=== PATIENT | female | born 1990 | race American Indian/Alaskan Native ===

== ENCOUNTER 2022-01-13 07:30 | Inpatient (IN) | payer OTHER ==
[2022-01-22] MEDS: LACTATED RINGERS 1,000 ML IV SCH ×2 (06:00→07:34)
[2022-01-22 06:54] LABS: Basophils # (Auto) 0.1 K/mm3 (0.0-0.1); Basophils % (Auto) 0.7 % (0.0-1.8); Eosinophils # (Auto) 0.1 K/mm3 (0.0-0.4); Eosinophils % (Auto) 0.9 % (0.0-4.3); Hematocrit 34.1 % (30.3-42.9); Lymphocytes # (Auto) 1.7 K/mm3 (1.2-5.4); Lymphocytes % (Auto) 22.5 % (13.4-35.0); Mean Corpuscular HGB Conc 35 % (30-34); Mean Corpuscular Volume 94 fl (79-97); Monocytes # (Auto) 0.7 K/mm3 (0.0-0.8); Monocytes % (Auto) 9.9 % (0.0-7.3); Platelet Count 202 K/mm3 (140-440); Red Blood Count 3.64 M/mm3 (3.65-5.03); Red Cell Distribution Width 12.7 % (13.2-15.2)
[2022-01-22] MEDS ORDERED: OXYTOCIN DRIP 30 UNITS/500 ML BAG IV SCH ×2 (07:00→11:00)
--- NOTE | 2022-01-22 07:05 | History and Physical Report ---
History of Present Illness Date of examination: 01/22/22 Date of admission: 01/22/22 05:26 Chief complaint: Term preg. Here for a scheduled repeat . History of present illness: by 2 cesareans. SHALINI 01/18/22. GDM, diet controlled. Past History Past Surgical History: section - Obstetrical History Expected Date of Delivery: 01/18/22 Actual Gestation: 40 Week(s) 4 Day(s) : 3 Number of Living Children: 2 Medications and Allergies Allergies Allergy/AdvReac Type Severity Reaction Status Date / Time No Known Allergies Allergy Verified 08/19/16 11:19 Home Medications Medication Instructions Recorded Confirmed Last Taken Type Ibuprofen [Motrin] 800 mg PO Q8HR PRN #60 tablet 08/20/16 Unknown Rx Oxycodone HCl/Acetaminophen 1 each PO Q6HR PRN #45 tablet 08/20/16 Unknown Rx [Percocet 7.5/325 mg] Vit-Fe Fumar-FA [ 1 tab PO QDAY 08/20/16 08/20/16 08/18/16 History Vitamin] Active Meds: Active Medications Citric Acid/Sodium Citrate (Bicitra Oral Liqd 30ml) 30 ml PO ONCE ONE Stop: 01/22/22 07:18 Famotidine (Famotidine 20 Mg/2 Ml Inj) 20 mg IV ONCE ONE Stop: 01/22/22 07:18 Lactated Ringer's (Lactated Ringers) 1,000 mls @ 2,250 mls/hr IV PREOP CARLA Stop: 01/23/22 06:57 Last Admin: 01/22/22 06:00 Dose: 2,250 mls/hr Oxytocin/Sodium Chloride (Pitocin/Ns 30 Unit/500ml) 30 units in 500 mls @ 0 mls/hr IV TITR CARLA; Protocol Cefazolin Sodium (Ancef/Sterile Water 2 Gm/20 Ml) 2 gm in 20 mls @ 80 mls/hr IV PREOP NR; Protocol Stop: 01/22/22 23:45 Metoclopramide HCl (Metoclopramide 10 Mg/2 Ml Inj) 10 mg IV ONCE ONE Stop: 01/22/22 07:18 Review of Systems All systems: negative - Vital Signs Vital signs: Vital Signs Pulse BP Pulse Ox 71 109/68 99 01/22/22 06:26 01/22/22 06:26 01/22/22 06:26 Temp Pulse Resp BP Pulse Ox 98.7 F 84 109/68 99 01/22/22 06:34 01/22/22 06:57 01/22/22 06:26 01/22/22 06:57 - Physical Exam Lungs: Positive: Normal air movement Abdomen: Positive: normal appearance, soft, distention, normal bowel sounds Uterus: Positive: enlarged, normal contour Extremities: Positive: normal Deep Tendon Reflex Grade: Normal +2 - Obstetrical FHR: auscultation normal Results Result Diagrams: 01/22/22 06:07 Abnormal lab results 01/22/22 Range/Units 06:07 RBC 3.64 L (3.65-5.03) M/mm3 MCH 33 H (28-32) pg MCHC 35 H (30-34) % RDW 12.7 L (13.2-15.2) % [place]ack[place] % (Auto) 9.9 H (0.0-7.3) % All other labs normal. Assessment and Plan - Patient Problems (1) Postmaturity , 40-42 weeks gestation Current Visit: Yes Status: Acute (2) Previous delivery affecting Current Visit: Yes Status: Acute Plan to address problem: for repeat . (3) GDM (gestational diabetes mellitus) Current Visit: Yes Status: Acute Qualifiers: Gestational diabetes mellitus control: diet-controlled
[2022-01-22] MEDS ORDERED: FAMOTIDINE 20 MG/2 ML INJ IV ONE (07:17)
[2022-01-22] MEDS ORDERED: METOCLOPRAMIDE 10 MG/2 ML INJ IV ONE (07:17)
[2022-01-22] MEDS ORDERED: BICITRA ORAL LIQD 30ML PO ONE (07:17)
[2022-01-22] MEDS ORDERED: ceFAZolin/Water 2 GM/20 ML 2 GM/20 ML SYRINGE IV NR (07:30)
[2022-01-22] MEDS ORDERED: ONDANSETRON 4 MG/2 ML INJ IV PRN ×2 (10:17→11:00)
[2022-01-22] MEDS ORDERED: PROMETHAZINE 25 MG RECT SUPP PR PRN ×2 (10:17→11:00)
--- NOTE | 2022-01-22 10:27 | Anesthesia Day of Surgery ---
Anesthesia Day of Surgery - Day of Surgery Patient Examined: Yes Patient H&P Reviewed: Yes Patient is NPO: Yes Beta Blockers: No Cardiac Clearance: No Pulmonary Clearance: No Raj's Test: N/A
--- NOTE | 2022-01-22 10:27 | Anesthesia Consultation ---
Anesthesia Consult and Med Hx Date of service: 01/22/22 - Airway Anesthetic Teeth Evaluation: Good ROM Head & Neck: Adequate Mental/Hyoid Distance: Adequate Mallampati Class: Class II Intubation Access Assessment: Probably Good - Pulmonary Exam CTA: Yes - Cardiac Exam Cardiac Exam: RRR - Pre-Operative Health Status ASA Pre-Surgery Classification: ASA2 Proposed Anesthetic Plan: Spinal Nerve Block: Uriel Tap - Pulmonary Hx Smoking: No Hx Asthma: No Hx Respiratory Symptoms: No SOB: No COPD: No Home Oxygen Therapy: No Hx Pneumonia: No Hx Sleep Apnea: No - Cardiovascular System Hx Hypertension: No Hx Coronary Artery Disease: No Hx Heart Attack/AMI: No Hx Angina: No Hx Percutaneous Transluminal Coronary Angioplasty (PTCA): No Hx Cardia Arrhythmia: No Hx Pacemaker: No Hx Internal Defibrillator: No Hx Valvular Heart Disease: No Hx Heart Murmur: No Hx Peripheral Vascular Disease: No - Central Nervous System Hx Neuromuscular Disorder: No Hx Seizures: No CVA: No Hx Back Pain: No Hx Psychiatric Problems: No - Gastrointestinal Hx Ulcer: No Hx Gastroesophageal Reflux Disease: No - Endocrine Hx Renal Disease: No Hx End Stage Renal Disease: No Hx Cirrhosis: No Hx Liver Disease: No Hx Insulin Dependent Diabetes: No Hx Non-Insulin Dependent Diabetes: No Hx Thyroid Disease: No Hx Hypothyroidism: No Hx Hyperthyroidism: No - Hematic Hx Anemia: No Hx Sickle Cell Disease: No - Other Systems Hx Alcohol Use: No Hx Substance Use: No Hx Cancer: No Hx Obesity: Yes
--- NOTE | 2022-01-22 10:27 | Operative Report ---
Operative Report Operative Report: Date of surgery: January 23, 2020 Preoperative diagnoses: 40 weeks and 4 days gestation, 2 previous C-sections, peritoneal adhesions. Postoperative diagnoses: The same. Operation: Lower segment transverse delivery, lysis of adhesions Surgeon:Cristofer Holbrook MD Icebox Man: Wilian Santos CRNA Anesthesia: Spinal block Estimated blood loss: 300 mL Complications: None Findings: Live baby girl, vertex, weight 7 pounds 6 ounces, Apgars 8/9. The ovaries fallopian tubes and the uterus were all grossly normal. The inferior aspect of the greater omentum was adherent to the anterior parietal peritoneum just inferior to the umbilical stump. Procedure in detail: The patient was taken to the operating room and given a spinal block. Patient was placed in the straight supine position and a Sadler catheter was inserted. The patient was prepped in the abdomen. The drapes were placed. A timeout was done. With the go ahead from the plastic press operator, a Pfannenstiel incision was made. This incision was carried across the subcutaneous layer to the fascia which was also divided transversely. The recti abdominis muscle flaps were stripped from the fascia using a combination of blunt and sharp dissections. The muscles were in the midline to gain access to the anterior parietal peritoneum which was divided after excluding any underlying viscera. The access to the peritoneal cavity was then widened by manual stretching. The bladder blade was applied. The utero vesicle peritoneal flap was divided transversely allowing the bladder to be displaced caudally. The uterine incision was placed in the lower segment transversely. The uterine incision was carried to the decidual layer. The uterine incision was extended on both sides using the bandage scissors. The amniotic sac was ruptured with clear fluid. The head was lifted out of the false maternal pelvis and delivered through the incision using fundal pressure combined with traction using the Kiwi. The airways were bulb suctioned beginning with the mouth. Continuing fundal pressure combined with traction on the mandibular processes of the jaw delivered the rest of the baby. The umbilical cord was double clamped and divided. The baby was carefully transferred to the pediatric team. The placenta was manually removed from the uterine cavity. The uterine cavity was explored and was empty of any placental remnants. The uterine incision was repaired in 2 layers with #1 Vicryl. The surgical line on the uterus was hemostatic. The omental peritoneal band was divided in between 2 pairs of Kellys forceps, divided and then suture ligated with #1 Vicryl. Hemostasis was satisfactory. Blood and clots were cleared from the peritoneal cavity. The anterior parietal peritoneum was repaired with #1 Vicryl. The fascia was repaired with #1 Vicryl. The subcutaneous layer was made hemostatic using the Bovie before the skin was closed subcuticularly with 4-0 Vicryl. There were no complications. The estimated blood loss was 300 mL. All sponges and instrument counts were correct. Patient was safely transferred to the recovery room.
--- NOTE | 2022-01-22 10:28 | Progress Note ---
Spinal Anesthesia Block - Spinal Anesthesia Block Start Time: 07:45 Stop Time: 07:52 Performed by:: BERTRAND FORTE Procedure: The patient was placed in a sitting position on the OR table and monitors applied. A timeout was performed immediately prior to the start of the procedure. The patient was Prepped and draped in a sterile fashion and the skin was localized with 3 mL 1% lidocaine at L[4]-L[5] interspace. An introducer was placed into the back between L4-L5 and a 25g spinal needle was advanced into the intrathecal space until clear, free flowing CSF was observed. 1.8cc of 0.75% hyperbaric bupivacaine + 0.5mcg Precedex was injected into the intrathecal space and the spinal needle was removed. The patient tolerated the procedure well and there were no immediate complications noted.
--- NOTE | 2022-01-22 10:30 | Progress Note ---
Regional Anesthesia Block - Regional Anesthesia Block Start Time: :15 Stop Time: : Performed By:: ANGEL CURIEL Procedure: After Pts C/S was completed a time out was performed prior to the start of the procedure. The Trans Abdominal Plane was identified bilaterally via ultrasound. The skin was prepped bilaterally with chlorhexidine and a 22g stimuplex needle was advanced to the area between the internal oblique muscle and the trans abdominal plane. Marcaine 0.25% 30mlwas injected under ultrasound guidance on the left and right side. Negative aspiration every 5mL, There was no change in the patients heart rate or rhythm and the patient tolerated the procedure well. No apparent complications were observed.
[2022-01-22] MEDS ORDERED: IBUPROFEN 600 MG TAB PO PRN (11:00)
[2022-01-22] MEDS ORDERED: MORPHINE 4 MG/1 ML INJ IV PRN ×2 (11:00→11:30)
[2022-01-22] MEDS ORDERED: PROMETHAZINE 25 MG TAB PO PRN (11:00)
[2022-01-22] MEDS ORDERED: LANOLIN/ZINC/DIMETHICONE (LANSINOH) 7 GM TP PRN (11:00)
[2022-01-22] MEDS ORDERED: NALOXONE 0.4 MG/1 ML INJ IV PRN ×2 (11:00)
[2022-01-22] MEDS ORDERED: HYDROmorphone 1 MG/1 ML INJ IV PRN ×2 (11:00)
[2022-01-22] MEDS ORDERED: WITCH HAZEL/ GLYCERIN PAD TP PRN (11:00)
[2022-01-22] MEDS ORDERED: MORPHINE 2 MG/1 ML INJ IV PRN (11:00)
[2022-01-22] MEDS ORDERED: SIMETHICONE 80 MG CHEW TAB PO PRN (11:00)
[2022-01-22] MEDS ORDERED: fentaNYL-BUPIV 2 MCG/ML-0.125% 200 MCG/100 ML BAG EPIDURAL SCH (11:00)
[2022-01-22] MEDS ORDERED: KETOROLAC 30 MG/1 ML INJ IV PRN ×2 (11:00)
[2022-01-22] MEDS ORDERED: SODIUM CHLORIDE 0.9% 1000 ML 1,000 ML IV SCH (12:00)
[2022-01-22] MEDS ORDERED: MAGNESIUM HYDROXIDE (MOM) ORAL LIQD UDC PO PRN (22:00)
[2022-01-22] MEDS ORDERED: SENNOSIDES 8.6 MG TAB PO PRN (22:00)
[2022-01-22 23:58] LABS: Hematocrit 31.8 % (30.3-42.9); Hemoglobin 10.7 gm/dl (10.1-14.3)
[2022-01-23] MEDS: HYDROcodone/ACETAMINOPHEN 5-325 MG TAB PO PRN ×3 (00:15→18:15)
[2022-01-23] MEDS: IBUPROFEN 800 MG TAB PO PRN (03:30)
[2022-01-23] MEDS: PRENATAL VIT27-FE FUMARATE-FOLIC ACID VIT TAB PO SCH (10:30)
--- NOTE | 2022-01-23 13:06 | Progress Note ---
Assessment and Plan A: POD #1 GDM Maternal Obesity P: Follow Routine Orders GDM Diet Accucheck after meals Subjective - Subjective Date of service: 01/23/22 Patient reports: appetite normal, voiding normally, dizzy ambulation, flatus, ambulating normally [place]: doing well, bottle feeding (and ) Objective - Vital Signs Latest vital signs: Vital Signs Temp Pulse Resp BP Pulse Ox Pulse Ox 01/23/22 08:15 100 01/23/22 07:17 97.5 F L 67 16 103/58 100 01/23/22 03:30 18 01/23/22 00:15 16 01/22/22 23:40 98.2 F 90 20 121/74 100 01/22/22 20:44 16 01/22/22 20:30 98 01/22/22 19:29 98 01/22/22 15:43 97.6 F 72 18 94/54 100 Intake and Output 01/22/22 01/23/22 01/23/22 22:59 06:59 14:59 Intake Total 240 120 Output Total 1000 1400 Balance -1000 -1160 120 Intake: Oral 240 120 Output: Urine 1000 1400 Indwelling Catheter 1000 Void 1400 Other: Total, Intake Amount 240 120 Total, Output Amount 1000 600 # Voids Indwelling Catheter 900 Void 2 1 - Exam Breasts: Present: normal Cardiovascular: Present: Regular rate Lungs: Present: Clear to auscultation, Normal air movement Abdomen: Present: normal appearance, soft, normal bowel sounds Uterus: Present: normal, firm, fundal height below umbilicus Extremities: Present: normal Incision: Present: dry, dressed
--- NOTE | 2022-01-24 00:10 | Post Anesthesia Evaluation ---
- Post Anesthesia Evaluation Patient Participated: Yes Airway Patent: Yes Stable Respiratory Function: Yes Nausea/Vomiting: No Temp > 96.8F: Yes Pain Manageable: Yes Adequeate Hydration: Yes Anesthesia Complications: No Block Receding Appropriately: Yes Patient on Ventilator: No
[2022-01-24] MEDS: HYDROcodone/ACETAMINOPHEN 5-325 MG TAB PO PRN (09:51)
[2022-01-24] MEDS: PRENATAL VIT27-FE FUMARATE-FOLIC ACID VIT TAB PO SCH (09:54)
--- NOTE | 2022-01-24 13:27 | Discharge Summary ---
Providers - Providers Date of Admission: 01/22/22 05:26 Date of discharge: 01/24/22 Attending physician: YVON MARQUEZ MD Primary care physician: YVON MARQUEZ MD Hospitalization Reason for admission: section Delivery: Procedure: section Episiotomy: none Laceration: none Incision: normal, dry, intact Other procedures: none complications: none Discharge diagnosis: IUP at term delivered [place] baby: female Condition at discharge: Good Disposition: 01 HOME / SELF CARE / HOMELESS Plan - Provider Discharge Summary Activity: no sex for 6 weeks, no heavy lifting 4 weeks, no strenuous exercise Diet: routine Instructions: routine Additional instructions: [] Smoking cessation referral if applicable(refer to patient education folder for contact #) [] Refer to [facility]'s [facility] Booklet Call your doctor immediately for: * Fever > 100.5 * Heavy vaginal bleeding ( >1 pad per hour) * Severe persistent headache * Shortness of breath * Reddened, hot, painful area to leg or breast * Drainage or odor from incision. * Keep incision clean and dry at all times and follow doctor's instructions regarding bathing/showering - Follow up plan Follow up: YVON MARQUEZ MD [Primary Care Provider] - 7 Days
[2022-01-24] MEDS: IBUPROFEN 800 MG TAB PO PRN (14:00)
[2022-01-24 16:38] VITALS: BP 112/67
== END 2022-01-24 17:00 | disposition home or self-care (01) | DRG 788 ==
LOC: APU 01-22 05:26 → OB 01-22 11:37
PROVIDERS: ADMIT Obstetrics & Gynecology Gynecology; ATTEND Obstetrics & Gynecology Gynecology
PROC: 10D00Z1 Extraction of Products of Conception, Low, Open Approach (ICD-10-PCS; principal; 2022-01-22)
DX: O34.211 Maternal care for low transverse scar from previous cesarean delivery (principal); Z37.0 Single live birth; Z3A.40 40 weeks gestation of pregnancy; Z20.822 Contact with and (suspected) exposure to COVID-19; O24.420 Gestational diabetes mellitus in childbirth, diet controlled; O99.62 Diseases of the digestive system complicating childbirth; K66.0 Peritoneal adhesions (postprocedural) (postinfection); O99.214 Obesity complicating childbirth
CPT/HCPCS: 36415; 85014; 85018; 85025; 86592; 86850; 86900; 86901; 88307; G0378; J3490; J1885; J2270; J2765; J7120; U0003

== ENCOUNTER 2022-01-18 11:27 | Outpatient (CLI) | payer OTHER ==
[2022-01-18 12:38] VITALS: BP 115/64
--- NOTE | 2022-01-18 17:19 | Ultrasound Report ---
Limited OB Ultrasound Biophysical profile HISTORY: decreased FM. TECHNIQUE: Grayscale and color imaging performed. COMPARISON: None FINDINGS: Single viable intrauterine gestation with cephalic presentation. Heart rate was 130 bpm. AF I was 9.3 cm. On biophysical profile, the fetus received a score of 2 out of 2 for breathing, movement, posture/ton e, and BIGG. Total score was 8 out of 8. IMPRESSION: 1. Single viable intrauterine gestation as above. 2. Normal BPP Signer Name: Maxi Rodriguez MD Signed: 01/18/2022 5:15 PM Workstation Name: [email or web address]
== END 2022-01-18 17:10 | disposition home or self-care (01) ==
LOC: TRG 11:27 → APU 11:29 → TRG 17:10
PROVIDERS: ATTEND Obstetrics & Gynecology
DX: O36.8130 Decreased fetal movements, third trimester, not applicable or unspecified (principal); Z3A.41 41 weeks gestation of pregnancy
CPT/HCPCS: 59025; 76815; 76819

== ENCOUNTER → 2022-01-22 | Day surgery (SDC) | payer OTHER ==
[~2022-01-22] MED LIST: BICITRA ORAL LIQD 30ML ONE; BUPIVACAINE/PF (0.5%) 5 MG/1 ML 30 ML VIAL INFILTRATI ONE; FAMOTIDINE 20 MG/2 ML INJ IV ONE; LACTATED RINGERS 1,000 ML ONE; METOCLOPRAMIDE 10 MG/2 ML INJ ONE; ONDANSETRON 4 MG/2 ML INJ ONE; OXYTOCIN DRIP 60,000 MILLIUNITS/1,000 ML BAG IV ONE; PHENYLEPHRINE/NS 1,000 MCG/10 ML SYRINGE (OR USE) IV ONE; SODIUM CHLORIDE 0.9% 100 ML ONE; SODIUM CHLORIDE 0.9% IRR 1,500 ML BOTTLE IR ONE; WATER FOR IRRIG STERILE 1,500 ML BOTTLE IR ONE; ceFAZolin/STERILE WATER 2 GM/20 ML SYRINGE IV ONE; ceFAZolin/Water 2 GM/20 ML 2 GM/20 ML SYRINGE IV ONE; ePHEDrine SULFATE 50 MG/1 ML INJ ONE
[2022-01-22 12:38] VITALS: BP 102/46
== END | disposition home or self-care (01) ==
LOC: LDOR 08:00
PROVIDERS: ATTEND Obstetrics & Gynecology
DX: O34.211 Maternal care for low transverse scar from previous cesarean delivery (principal); Z3A.40 40 weeks gestation of pregnancy
CPT/HCPCS: 59514; J0690; J2370; J2405; J2590; J2765; J3490; J7120